=== PATIENT | female | born 1965 | race Caucasian/White ===

== ENCOUNTER 2017-09-21 12:33 | Outpatient (RCR) | payer MEDICARE, BC, OTHER ==
[~2017-09-21] VITALS: Ht 167.6 cm; Wt 88.5 kg
[2017-09-21 13:00] VITALS: BP 133/94; PULSE 69; TEMP 98
[2017-09-21] MEDS ORDERED: ZESTRIL 10MG10 MG PO (13:11)
[2017-09-21] MEDS ORDERED: ZOCOR 10MG10 MG PO (13:14)
[2017-09-21] MEDS ORDERED: MAXALT MLT5 MG PO (13:15)
[2017-09-21] MEDS ORDERED: SYNTHROID 0.10.15 MG PO (13:15)
[2017-09-21] MEDS ORDERED: DAZIDOX10 MG PO (13:16)
[2017-09-21] MEDS ORDERED: NEURONTIN300 MG/CAP PO (13:17)
[2017-09-21] MEDS ORDERED: PROMETHAZINE12.5 M5 PO (13:17)
== END 2017-09-21 14:27 | disposition home or self-care (01) ==
LOC: EUO 12:33
DX: T85.79XA Infection and inflammatory reaction due to other internal prosthetic devices, implants and grafts, initial encounter (principal); Z95.9 Presence of cardiac and vascular implant and graft, unspecified
CPT/HCPCS: C1751

== ENCOUNTER → 2017-10-03 | Outpatient (REF) ==
[~2017-10-03] MED LIST: DAZIDOX10 MG PO; MAXALT MLT5 MG PO; NEURONTIN300 MG/CAP PO; PROMETHAZINE12.5 M5 PO; SYNTHROID 0.10.15 MG PO; ZESTRIL 10MG10 MG PO; ZOCOR 10MG10 MG PO
== END ==
LOC: ZAIV 09-25 06:10
DX: Z09 Encounter for follow-up examination after completed treatment for conditions other than malignant neoplasm (principal)